=== PATIENT | female | born 1995 | race American Indian/Alaskan Native ===

== ENCOUNTER 2017-11-25 21:02 | Emergency (ER) | payer MEDICAID ==
[2017-11-25 21:34] VITALS: BP 125/80
== END 2017-11-26 01:05 | disposition left against medical advice (07) ==
LOC: EDBD → ED 21:02
DX: L29.9 Pruritus, unspecified (principal); Z53.21 Procedure and treatment not carried out due to patient leaving prior to being seen by health care provider